=== PATIENT | female | born 1980 | race Hispanic/Latino ===

== ENCOUNTER 2021-12-23 11:52 | Outpatient (CLI) | payer BC ==
[2021-12-23 13:32] LABS: Hemoglobin 12.4 g/dL (12.0-15.5); Mean Corpuscular HGB CONC 31.7 g/dL (32.0-36.0); Mean Corpuscular Hemoglobin 25.3 pg (27.0-33.0); Mean Corpuscular Volume 79.6 fl (81.6-98.3); Mean Platelet Volume 11.6 fl (7.4-10.4); Platelet Count 252 10x3/uL (150-450); RBC Distribution Width 14.8 % (11.5-14.5); Red Blood Cell (RBC) Count 4.91 10x6/uL (3.90-5.03); White Blood Cell (WBC) Count 8.1 10x3/uL (3.5-10.5)
[2021-12-23 13:41] LABS: Anion Gap 14 mmol/L (10-20); BUN (Urea Nitrogen) 10 mg/dL (7.0-18.7); Calc. Creatinine Clearance 0 mL/min (70-130); Calcium 9.3 mg/dL (7.8-10.44); Carbon Dioxide 24 mmol/L (22-29); Chloride 106 mmol/L (98-107); Glucose 100 mg/dL (70-105); Potassium 4.4 mmol/L (3.5-5.1); Sodium 140 mmol/L (136-145)
== END 2021-12-23 11:53 | disposition home or self-care (01) ==
LOC: CSHLAB 11:52
PROVIDERS: ATTEND Podiatrist Foot & Ankle Surgery
DX: Z01.812 Encounter for preprocedural laboratory examination (principal); Z20.822 Contact with and (suspected) exposure to COVID-19; M20.11 Hallux valgus (acquired), right foot
CPT/HCPCS: 80048; 85027; U0003; U0005

== ENCOUNTER 2021-12-25 09:01 | Day surgery (SDC) | payer BC ==
[2021-12-20 14:47] VITALS: BMI 35.4
[2021-12-25] MEDS ORDERED: Bupivacaine PF 0.5% 30 ML VIAL ONE (10:06)
[2021-12-25] MEDS ORDERED: Neomycin-Polymyxin 1 ML AMP ONE (10:07)
[2021-12-25] MEDS ORDERED: Lidocaine 1% MPF 2 ML VIAL ONE (10:41)
[2021-12-25] MEDS ORDERED: ceFAZolin 2 GM/Dextrose 50 ML IVPB ONE (11:26)
[2021-12-25] MEDS ORDERED: Ondansetron PF 4 MG/2 ML Vial ONE (11:28)
[2021-12-25] MEDS ORDERED: Fentanyl 100 MCG/2 ML VIAL ONE (11:28)
[2021-12-25] MEDS ORDERED: Lidocaine 1% PF 5 ML VIAL ONE (11:28)
[2021-12-25] MEDS ORDERED: PROPOFOL 20 ML ONE (11:28)
[2021-12-25] MEDS ORDERED: Midazolam HCl 2 mg/2 ml Vial ONE (11:28)
[2021-12-25] MEDS ORDERED: Dexamethasone 4 mg/ml Vial ONE (11:28)
[2021-12-25] MEDS ORDERED: PHENYLEPHRINE-NS 100 MCG/ML 10 ML SYRINGE ONE (12:25)
[2021-12-25] MEDS ORDERED: Ketorolac Tromethamine 30 MG/ML VIAL ONE (12:34)
== END 2021-12-25 14:02 | disposition home or self-care (01) ==
LOC: CSHSDC 09:01
PROVIDERS: ATTEND Podiatrist Foot & Ankle Surgery
PROC: 0SGM04Z Fusion of Right Metatarsal-Phalangeal Joint with Internal Fixation Device, Open Approach (ICD-10-PCS; principal; 2021-12-25)
PROC: 0QBQ0ZZ Excision of Right Toe Phalanx, Open Approach (ICD-10-PCS; principal; 2021-12-25)
DX: M21.611 Bunion of right foot (principal); M20.11 Hallux valgus (acquired), right foot; I10 Essential (primary) hypertension; Z79.899 Other long term (current) drug therapy; Z88.2 Allergy status to sulfonamides
CPT/HCPCS: C1713; J0690; J1100; J1885; J2250; J2405; J2704; J3010; S0020